=== PATIENT | female | born 1950 | race Caucasian/White ===

== ENCOUNTER 2018-08-06 16:17 | Outpatient (CLI) | payer MEDICARE, MEDICAID, SELFPAY ==
--- NOTE | 2018-08-06 16:35 | DI.MAMMO_ITS ---
SYMPTOMS/DIAGNOSIS: SCREENING, Z12.31 MAMMOGRAM: Mammograms were interpreted according to the usual protocol including computer analysis with CAD system, tomosynthesis and C view imaging. The breast tissue is of moderate radiodensity. There is no evidence of a dominant mass. Note is made of small bilateral intramammary lymph nodes. There are no suspicious calcifications and nothing to suggest a malignancy. SUMMARY: No evidence of malignancy, Category I, yearly screening mammography is recommended. Breast density Category B SA ASSESSMENT OF FINDINGS: Negative. Category 1. Patient will receive a letter notifying them of these results. BI-RADS category B. There are scattered areas of fibroglandular density.
== END 2018-08-06 16:37 ==
PROVIDERS: PCP Nurse Practitioner Family; Visit Provider Nurse Practitioner Family
DX: Z12.31 Encounter for screening mammogram for malignant neoplasm of breast (principal)
CPT/HCPCS: 77063; 77067

== ENCOUNTER 2018-09-10 21:58 | Outpatient (REF) | payer MEDICARE, MEDICAID, SELFPAY ==
[2018-09-10 22:28] LABS: TSH (W/Ref FT4) 3.95 uIU/mL (0.358-3.74)
[2018-09-11 00:06] LABS: FREE T4 0.75 ng/dL (0.76-1.46)
== END 2018-09-10 22:18 ==
LOC: NCHCN 21:58
PROVIDERS: PCP Nurse Practitioner Family; Visit Provider Nurse Practitioner Family
DX: E03.9 Hypothyroidism, unspecified (principal); R73.01 Impaired fasting glucose; R53.83 Other fatigue; F41.8 Other specified anxiety disorders
CPT/HCPCS: 84439; 84443

== ENCOUNTER 2018-10-26 13:06 | Outpatient (REF) | payer MEDICARE, MEDICAID, SELFPAY ==
[2018-10-26 22:18] LABS: FREE T4 0.82 ng/dL (0.76-1.46); TSH 2.84 uIU/mL (0.358-3.74)
== END 2018-10-26 13:26 ==
LOC: NCHCN 13:06
PROVIDERS: PCP Nurse Practitioner Family; Visit Provider Nurse Practitioner Family
DX: E03.9 Hypothyroidism, unspecified (principal)
CPT/HCPCS: 84439; 84443

== ENCOUNTER 2019-07-02 14:45 | Outpatient (REF) | payer MEDICARE, MEDICAID, SELFPAY | END 2019-07-02 15:05 | LOC: NCHCN 14:45 | PROVIDERS: PCP Nurse Practitioner Family; Visit Provider Nurse Practitioner Family | DX: R35.0 Frequency of micturition (principal) | CPT/HCPCS: 87086 ==

== ENCOUNTER 2022-02-22 16:31 | Outpatient (REF) | payer MEDICARE, MEDICAID, SELFPAY ==
[2022-02-22 19:26] LABS: Abs Immature Grans 0.03 10^3/uL (0.0-0.06); Absolute Basophil Count 0.04 10^3/uL (0.0-0.2); Absolute Eosinophil Count 0.33 10^3/uL (0.0-0.7); Absolute Lymphocyte Count 1.28 10^3/uL (1.2-3.4); Absolute Monocyte Count 0.59 10^3/uL (0.1-0.8); Absolute Neutrophil Count 5.77 10^3/uL (1.2-6.7); Basophils % 0.5; Eosinophils % 4.1; HCT 45.6 % (36.0-46.0); HGB 15.2 g/dL (11.2-15.7); Immature Grans % 0.4; Lymphocytes % 15.9; MCH 31.7 pg (27.0-33.0); MCHC 33.3 % (32.0-36.0); MCV 95 fL (80-95); MPV 12.1 fL (8.0-11.0); Monocytes % 7.3; Neutrophils % 71.8; Platelet Count 323 10^3/uL (130-400); RDW 12.7 % (11.7-14.6); RDW-SD 44.7 fL; WBC 8.04 10^3/uL (4.4-10.8)
[2022-02-22 19:35] LABS: Iron 92 ug/dL (50-170); Total Iron Binding Capacity 304 ug/dL (250-450); Transferrin Sat 30 % (15-50)
[2022-02-22 20:00] LABS: ALT 51 U/L (14-59); AST 27 U/L (15-37); Albumin 3.8 g/dL (3.4-5.0); Alkaline Phosphatase 134 U/L (46-116); Anion Gap 8.9 mmol/L (3-11); BUN 15 mg/dL (7-18); Bilirubin, Total 0.3 mg/dL (0.2-1.0); CO2 26.1 mmol/L (21.0-32.0); CREATININE 0.9 mg/dL (0.55-1.02); Calcium 8.6 mg/dL (8.5-10.1); Chloride 107 mmol/L (98-107); Ferritin 38 ng/mL (8-252); Folate 13.1 ng/mL (8.6-20.0); Glucose 104 mg/dL (74-106); Magnesium 2.3 mg/dL (1.8-2.4); Sodium 142 mmol/L (136-145); TSH (W/Ref FT4) 4.23 uIU/mL (0.36-3.74); Total Protein 7.3 g/dL (6.4-8.2); Vitamin B12 597 pg/mL (193-986)
[2022-02-22 20:17] LABS: FREE T4 0.78 ng/dL (0.76-1.46)
[2022-02-25 05:51] LABS: Vitamin D 25 Total 44.4 ng/mL (30-100)
[2022-02-25 10:37] LABS: Parathyroid Hormone,Intact 95 pg/mL (19-88)
[2022-02-27 13:25] LABS: Thiamine (Vitamin B1), WB 162 nmol/L (70-180)
== END 2022-02-22 16:32 | disposition home or self-care (01) ==
LOC: NCHCN 16:31
PROVIDERS: PCP Nurse Practitioner Family; Visit Provider Nurse Practitioner Family
DX: E03.9 Hypothyroidism, unspecified (principal); R53.83 Other fatigue; R20.2 Paresthesia of skin; M85.80 Other specified disorders of bone density and structure, unspecified site; M25.571 Pain in right ankle and joints of right foot; K59.00 Constipation, unspecified; R74.01 Elevation of levels of liver transaminase levels; G47.33 Obstructive sleep apnea (adult) (pediatric)
CPT/HCPCS: 80053; 82306; 82607; 82728; 82746; 83540; 83550; 83735; 83970; 84425; 84439; 84443; 85025

== ENCOUNTER → 2022-03-19 02:59 | Outpatient (CLI) | payer MEDICARE, MEDICAID, SELFPAY ==
--- NOTE | 2022-03-19 12:15 | DI.MAMMO_ITS ---
Exam(s) MAMMO SCREENING EXAM: MAMMO SCREENING CLINICAL HISTORY: SCREENING, Z12.31 TECHNIQUE: Mammograms were interpreted according to the usual protocol including computer analysis w [employer] CAD system, tomosynthesis and C-view imaging. COMPARISON: 2014 through 2017 FINDINGS: The breasts are composed of mainly fatty density , Breast Density category A. No suspicious masses or suspicious microcalcifications are seen. Vascular calcifications are inciden tally noted. No skin thickening or abnormal axillary lymph nodes are seen. There has been no significant change from prior exams. IMPRESSION: BI-RADS Category 1, Negative mammogram Yearly screening mammography is recommended. Breast Density - Category A, fatty density. A negative radiographic report should not delay biopsy if a dominant or clinically suspicious mass is present. Up to ten percent of cancers are not identified on mammography. A negative report may reinforce clinical impression. Adenosis and dense breasts may obscure an underlying neoplasm. False positive reports average 6 to 10%. Patient will receive a letter notifying them of these results.
== END ==
PROVIDERS: PCP Nurse Practitioner Family; Visit Provider Nurse Practitioner Family
DX: Z12.31 Encounter for screening mammogram for malignant neoplasm of breast (principal)
CPT/HCPCS: 77063; 77067

== ENCOUNTER 2022-04-11 15:50 | Outpatient (REF) | payer MEDICARE, MEDICAID, SELFPAY ==
[2022-04-11 19:10] LABS: HCT 45.5 % (36.0-46.0); HGB 15.4 g/dL (11.2-15.7); MCH 31.8 pg (27.0-33.0); MCHC 33.8 % (32.0-36.0); MCV 94 fL (80-95); MPV 12.2 fL (8.0-11.0); Platelet Count 294 10^3/uL (130-400); RBC 4.84 10^6/uL (3.93-5.22); RDW 12.6 % (11.7-14.6); WBC 7.81 10^3/uL (4.4-10.8)
[2022-04-11 19:26] LABS: Iron 109 ug/dL (50-170); Total Iron Binding Capacity 249 ug/dL (250-450); Transferrin Sat 44 % (15-50)
[2022-04-11 19:44] LABS: ALT 65 U/L (14-59); AST 32 U/L (15-37); Albumin 3.8 g/dL (3.4-5.0); Alkaline Phosphatase 144 U/L (46-116); Anion Gap 10.4 mmol/L (3-11); BUN 13 mg/dL (7-18); Bilirubin, Total 0.5 mg/dL (0.2-1.0); CO2 26.6 mmol/L (21.0-32.0); Calcium 8.7 mg/dL (8.5-10.1); Chloride 109 mmol/L (98-107); Estimated GFR 60.61 (mL/min/1.73m2); Ferritin 62 ng/mL (8-252); Folate 11.2 ng/mL (8.6-20.0); Glucose 115 mg/dL (74-106); Potassium 4.4 mmol/L (3.5-5.1); Sodium 146 mmol/L (136-145); Total Protein 6.9 g/dL (6.4-8.2); Vitamin B12 638 pg/mL (193-986)
[2022-04-15 10:51] LABS: Parathyroid Hormone,Intact 77 pg/mL (19-88)
== END 2022-04-11 15:51 | disposition home or self-care (01) ==
LOC: NCHCN 15:50
PROVIDERS: PCP Nurse Practitioner Family; Visit Provider Nurse Practitioner Family
DX: R79.89 Other specified abnormal findings of blood chemistry (principal); E03.9 Hypothyroidism, unspecified; R53.83 Other fatigue; E66.9 Obesity, unspecified; E78.5 Hyperlipidemia, unspecified; R74.01 Elevation of levels of liver transaminase levels
CPT/HCPCS: 80053; 82306; 85027; 82607; 82728; 82746; 83540; 83550; 83970; 84425

== ENCOUNTER 2022-04-19 11:44 | Outpatient (CLI) | payer MEDICARE, MEDICAID, SELFPAY ==
--- NOTE | 2022-04-19 11:00 | DI.RAD_ITS ---
Exam(s) XR ANKLE LT COMPLETE EXAM: XR ANKLE LT COMPLETE CLINICAL HISTORY: BILATERAL ANKLE PAIN TECHNIQUE: 2D digital imaging was performed of the left ankle. Three images were obtained. AP, lat eral and oblique views were obtained. COMPARISON: No exams were available for comparison FINDINGS: BONES: No acute fracture is present. No bony destructive lesion is seen. JOINTS:The ankle mortise is normally aligned. The joint space is well maintained. SOFT TISSUE: There is soft tissue swelling about the ankle. IMPRESSION: No acute abnormality. DATA REPOSITORY: RADIATION DOSE DELIVERED:
--- NOTE | 2022-04-19 11:00 | DI.RAD_ITS ---
Exam(s) XR ANKLE RT COMPLETE EXAM: XR ANKLE RT COMPLETE CLINICAL HISTORY: BILATERAL ANKLE PAIN. TECHNIQUE: 2D digital imaging was performed of the right ankle. Three images were obtained. AP, la teral and oblique views were obtained. COMPARISON: No exams were available for comparison FINDINGS: BONES: No acute fracture is present. No bony destructive lesion is seen. There is a small plantar ca lcaneal spur. JOINTS: The ankle mortise is normally aligned. The joint space is well maintained. SOFT TISSUE: There is soft tissue swelling about the ankle. IMPRESSION: No acute abnormality. DATA REPOSITORY: RADIATION DOSE DELIVERED:
== END 2022-04-19 11:45 | disposition home or self-care (01) ==
LOC: DIORS 11:45
PROVIDERS: PCP Nurse Practitioner Family; Referring Provider Nurse Practitioner Family; Visit Provider Student in an Organized Health Care Education/Training Program
DX: M21.171 Varus deformity, not elsewhere classified, right ankle (principal); M21.172 Varus deformity, not elsewhere classified, left ankle
CPT/HCPCS: 99203; 73610

== ENCOUNTER → 2022-05-16 02:09 | Outpatient (CLI) | payer MEDICARE, MEDICAID, SELFPAY ==
--- NOTE | 2022-05-16 07:45 | DI.MRI_ITS ---
Exam(s) MR LOWER JOINT LT WO EXAM: MR LOWER JOINT LT WO CLINICAL HISTORY: PAIN, SINUS TARSI SYNDROME,mass lt ankle, r22.42. TECHNIQUE: Multiplanar multisequence MRI was performed. COMPARISON: No exams were available for comparison FINDINGS: MR examination of the ankle was performed according to the usual protocol. There is reportedly soft tissue swelling around the ankle. No mass identified in the soft tissues or associated with the bone s of the ankle. However there is some prominence of the lateral subcutaneous fat at the level the ta rosetta with mildly increased signal seen in subcutaneous fat laterally, some inflammation in this region could be present. No discrete mass identified. No bony signal abnormality seen in the region of the ankle. No ligamentous disruption involving the anterior, posterior, medial, or lateral ligament complexes period no tendinous signal abnormality or tear. Intact Achilles and plantar fascia attachments noted. The requisition raises the possibility of sinus tarsi syndrome. There is minimal signal abnormality in the region of the sinus tarsi, however the findings are quite subtle and may just be associated wi th mild generalized edema of the fat in the ankle region. No gross ligamentous disruption identified in this area. No associated bony signal abnormality of the talus or calcaneus. Anterior retinaculu m appears intact. IMPRESSION: Mild soft tissue edema of the ankle, no mass identified. More localized lateral subcutaneous fat salma ma is noted and could represent local inflammation. No specific indication of significant inflammation in the sinus tarsi region. DATA REPOSITORY:
== END ==
PROVIDERS: PCP Nurse Practitioner Family; Visit Provider Student in an Organized Health Care Education/Training Program
DX: R22.42 Localized swelling, mass and lump, left lower limb (principal)
CPT/HCPCS: 73721

== ENCOUNTER → 2022-05-23 02:05 | Outpatient (CLI) | payer MEDICARE, MEDICAID, SELFPAY ==
--- NOTE | 2022-05-23 13:00 | DI.US_ITS ---
Exam(s) US THYROID EXAM: US THYROID CLINICAL HISTORY: ELEVATED PARATHYROID HORMONE, R79.89. TECHNIQUE: Ultrasound thyroid performed using standard protocol. COMPARISON: No exams were available for comparison FINDINGS: ISTHMUS: 1.6 mm RIGHT LOBE: Size: 3.1 x 1.4 x 0.8 cm Echogenicity: Normal. Vascularity: Normal. Nodules: No solid nodules are seen. LEFT LOBE: Size: 3 x 1.0 x 1.0 cm Echogenicity: Normal. Vascularity: Normal. Nodules: None. OTHER FINDINGS: A single solitary calcification is seen in the left lobe of the thyroid gland. IMPRESSION: No suspicious thyroid nodules. DATA REPOSITORY:
== END ==
PROVIDERS: PCP Nurse Practitioner Family; Visit Provider Nurse Practitioner Family
DX: R79.89 Other specified abnormal findings of blood chemistry (principal)
CPT/HCPCS: 76536

== ENCOUNTER 2022-08-06 15:55 | Outpatient (REF) | payer MEDICARE, MEDICAID, SELFPAY ==
[2022-08-06 20:51] LABS: ALT 43 U/L (14-59); AST 29 U/L (15-37); Alkaline Phosphatase 174 U/L (46-116); Bilirubin, Direct 0.1 mg/dL (0.0-0.2); Bilirubin, Total 0.6 mg/dL (0.2-1.0); GGT 35 U/L (5-55); TSH (W/Ref FT4) 2.53 uIU/mL (0.36-3.74)
[2022-08-08 11:42] LABS: Hepatitis A Antibody IgM Negative (Negative); Hepatitis B Core Antibody Negative (Negative); Hepatitis B surface Ag Negative (Negative); Hepatitis C Ab w Rflx HCV PCR Negative (Negative)
== END 2022-08-06 15:56 | disposition home or self-care (01) ==
LOC: NCHCN 15:55
PROVIDERS: PCP Nurse Practitioner Family; Visit Provider Nurse Practitioner Family
DX: E03.9 Hypothyroidism, unspecified (principal); K59.00 Constipation, unspecified; R53.83 Other fatigue; R74.01 Elevation of levels of liver transaminase levels; E66.9 Obesity, unspecified; F41.8 Other specified anxiety disorders; R51.9 Headache, unspecified
CPT/HCPCS: 80076; 86704; 86709; 86803; 87340; 82977; 84443

== ENCOUNTER 2022-08-20 01:57 | Outpatient (CLI) | payer MEDICARE, MEDICAID, SELFPAY ==
--- NOTE | 2022-08-20 | DI.US_ITS ---
Exam(s) US ABDOMEN EXAM: US ABDOMEN CLINICAL HISTORY: ELEVATED TRANSAMINASES,R74.0 TECHNIQUE: Ultrasound abdomen performed using standard protocol. COMPARISON: No exams were available for comparison FINDINGS: ABDOMINAL AORTA AND IVC: Visualized portions normal caliber. PANCREAS: Normal where visualized. LIVER: Normal. Hepatopedal flow in the Portal Vein. The liver measures 15.0 cm long. There are 3 hep atic cysts present. The largest measures 3.5 x 3.6 x 4.7 cm. The 2 smaller ones measure 2.5 x 3.2 x 2.9 cm and 1.4 x 1.4 x 1.7 cm. The cysts are all simple. GALLBLADDER:There is a mobile gallstone present. No evidence of wall thickening. No pericholecystic fluid identified. BILIARY SYSTEM: Common bile duct measures < 7 mm. No intrahepatic biliary ductal dilation. HOLLAND'S SIGN: Negative. KIDNEYS: Kidneys are symmetric in size. No evidence of renal calculi. No evidence of hydronephrosis. No renal mass or cyst identified. SPLEEN: Not enlarged. ASCITES: None seen. IMPRESSION: 1. Hepatic simple cysts. The largest measures 4.7 cm. 2. Cholelithiasis. No sonographic evidence of acute cholecystitis. DATA REPOSITORY:
== END 2022-08-20 02:17 ==
PROVIDERS: PCP Nurse Practitioner Family; Visit Provider Nurse Practitioner Family
DX: K80.20 Calculus of gallbladder without cholecystitis without obstruction (principal); N28.1 Cyst of kidney, acquired
CPT/HCPCS: 76700

== ENCOUNTER → 2022-09-13 10:10 | Outpatient (BNVA) | payer MEDICARE, MEDICAID, SELFPAY | PROVIDERS: PCP Nurse Practitioner Family; Referring Provider Nurse Practitioner Family; Visit Provider Student in an Organized Health Care Education/Training Program | DX: M25.571 Pain in right ankle and joints of right foot (principal); M25.572 Pain in left ankle and joints of left foot; I89.0 Lymphedema, not elsewhere classified | CPT/HCPCS: 99212 ==

== ENCOUNTER 2023-02-25 16:10 | Outpatient (REF) | payer MEDICARE, MEDICAID, SELFPAY ==
[2023-02-25 21:32] LABS: Abs Immature Grans 0.02 10^3/uL (0.0-0.06); Absolute Basophil Count 0.03 10^3/uL (0.0-0.2); Absolute Eosinophil Count 0.22 10^3/uL (0.0-0.7); Absolute Lymphocyte Count 1.16 10^3/uL (1.2-3.4); Absolute Monocyte Count 0.52 10^3/uL (0.1-0.8); Basophils % 0.4; HCT 45.8 % (36.0-46.0); HGB 15.4 g/dL (11.2-15.7); Immature Grans % 0.3; MCH 31.5 pg (27.0-33.0); MCHC 33.6 % (32.0-36.0); MCV 94 fL (80-95); MPV 12.7 fL (8.0-11.0); Monocytes % 7.2; Neutrophils % 73.1; Platelet Count 282 10^3/uL (130-400); RBC 4.89 10^6/uL (3.93-5.22); RDW 12.7 % (11.7-14.6); RDW-SD 43.8 fL; WBC 7.25 10^3/uL (4.4-10.8)
[2023-02-25 21:37] LABS: Iron 118 ug/dL (50-170); Total Iron Binding Capacity 317 ug/dL (250-450); Transferrin Sat 37 % (15-50)
[2023-02-25 22:01] LABS: ALT 34 U/L (14-59); AST 24 U/L (15-37); Albumin 3.9 g/dL (3.4-5.0); Alkaline Phosphatase 130 U/L (46-116); BUN 9 mg/dL (7-18); Bilirubin, Total 0.6 mg/dL (0.2-1.0); CREATININE 1.1 mg/dL (0.55-1.02); Calcium 9.1 mg/dL (8.5-10.1); Calculated LDL 84 mg/dL (<100); Chloride 109 mmol/L (98-107); Cholesterol 167 mg/dL (<200); Estimated GFR 53.72 (mL/min/1.73m2); Ferritin 26 ng/mL (8-252); Glucose 111 mg/dL (74-106); HDL Cholesterol 64 mg/dL (40-60); Magnesium 2.4 mg/dL (1.8-2.4); Potassium 4.5 mmol/L (3.5-5.1); Sodium 146 mmol/L (136-145); TSH (W/Ref FT4) 7.94 uIU/mL (0.36-3.74); Total Protein 6.8 g/dL (6.4-8.2); Triglyceride 99 mg/dL (<150); Vitamin B12 396 pg/mL (193-986)
[2023-02-25 22:17] LABS: FREE T4 0.83 ng/dL (0.76-1.46)
[2023-02-26 19:52] LABS: Parathyroid Hormone,Intact 93 pg/mL (19-88)
== END 2023-02-25 16:11 | disposition home or self-care (01) ==
LOC: NCHCN 16:10
PROVIDERS: PCP Nurse Practitioner Family; Visit Provider Nurse Practitioner Family
DX: E66.9 Obesity, unspecified (principal); M85.80 Other specified disorders of bone density and structure, unspecified site; R53.83 Other fatigue; G47.33 Obstructive sleep apnea (adult) (pediatric); R51.9 Headache, unspecified; M25.571 Pain in right ankle and joints of right foot; M25.572 Pain in left ankle and joints of left foot; R42 Dizziness and giddiness; E03.9 Hypothyroidism, unspecified
CPT/HCPCS: 80053; 80061; 82607; 82728; 82746; 83540; 83550; 83735; 83970; 84439; 84443; 85025

== ENCOUNTER 2023-02-28 00:42 | Outpatient (CLI) | payer MEDICARE, MEDICAID, SELFPAY ==
--- NOTE | 2023-02-28 15:40 | DI.DEXA_ITS ---
Exam(s) XR DEXA BONE DENSITY W/WO MARIJA EXAM: XR DEXA BONE DENSITY W/WO MARIJA CLINICAL HISTORY: OSTEOPENIA, DISORDER OF BONE DENSITY,M85.88 TECHNIQUE: [employer] C densitometer analysis of left hip, lumbar spine and left forearm. Lat eral survey image of the thoracic and lumbar spine. COMPARISON: DX DEXA BONE DENSITY WITH MARIJA from 11/18/2017 FINDINGS: Lateral view of the thoracic and lumbar spine shows no evidence of compression fractures. Bone mineral density measurements of the lumbar spine correspond to a total T-score of -1.9, in the osteopenic range. This represents a 5.3 percent decrease from 2018. Bone mineral density measurements of the left hip correspond to a total T-score of -1.6. The femora l neck T-score is -2.2, in the osteopenic range. This represents a 14.0 percent decrease from 2018. . Theleft forearm bone mineral density measurements correspond to a T-score of the distal 3rd of - 2.3 , in the osteopenic range. This represents an 8.4 percent decrease from 2018.. IMPRESSION: Osteopenia of the lumbar spine, hip and forearm with decrease in bone density compared with 2018..
== END 2023-02-28 01:02 ==
LOC: DI 00:42
PROVIDERS: PCP Nurse Practitioner Family; Visit Provider Nurse Practitioner Family
DX: M85.88 Other specified disorders of bone density and structure, other site (principal); Z13.820 Encounter for screening for osteoporosis; Z78.0 Asymptomatic menopausal state
CPT/HCPCS: 77080

== ENCOUNTER 2023-04-10 21:06 | Outpatient (REF) | payer MEDICARE, MEDICAID, SELFPAY ==
[2023-04-10 21:36] LABS: Folate > 20.0 ng/mL (8.6-20.0); TSH 13.39 uIU/mL (0.36-3.74)
== END 2023-04-10 21:07 | disposition home or self-care (01) ==
LOC: NCHCN 21:06
PROVIDERS: PCP Nurse Practitioner Family; Visit Provider Nurse Practitioner Family
DX: D52.0 Dietary folate deficiency anemia (principal); E03.9 Hypothyroidism, unspecified
CPT/HCPCS: 82746; 84443

== ENCOUNTER 2023-05-29 16:03 | Outpatient (REF) | payer MEDICARE, MEDICAID, SELFPAY ==
[2023-05-29 21:20] LABS: TSH (W/Ref FT4) 1.18 uIU/mL (0.36-3.74)
== END 2023-05-29 16:04 | disposition home or self-care (01) ==
LOC: NCHCN 16:03
PROVIDERS: PCP Nurse Practitioner Family; Visit Provider Nurse Practitioner Family
DX: R25.1 Tremor, unspecified (principal); E03.9 Hypothyroidism, unspecified
CPT/HCPCS: 84443